=== PATIENT | female | born 1980 | race Caucasian/White ===

== ENCOUNTER 2023-10-21 18:09 | Observation (INO) | payer BC, SELFPAY ==
[2023-10-21] VITALS (24 sets, daily range): BP systolic 129–166; BP diastolic 85–96; PULSE 54–72; TEMP 36.5–36.8; O2SAT 93–100; BMI 43.0; BMI 45.0
--- NOTE | 2023-10-21 18:36 | ECG_ITS ---
The [facility] Test Date: 2023-10-21 Pat Name: JENNIFER VERAS Department: Room: - Gender: Female Flying Teacher: : 1980 Requested By: [id number] Order Number: [id number] Reading MD: RODRIGO FORMAN Measurements Intervals [place] Rate: 61 P: 58 KS: 176 QRS: 74 QRSD: 86 T: 62 QT: 440 QTc: 444 Interpretive Statements 1100 Sinus rhythm 9110 normal ECG No previous ECG available for comparison Electronically Signed On 10-22-2023 19:07:29 EDT by RODRIGO FORMAN
--- NOTE | 2023-10-21 18:40 | ED.GENADUL1 ---
HPI HPI - General Adult General Chief complaint: Dizziness Stated complaint: Chest Pain, Nausea/Vomiting Time Seen by Provider: 10/21/23 18:14 Source: patient Mode of arrival: Wheelchair Limitations: no limitations History of Present Illness HPI narrative: Patient is a 43-year-old female who presents to the emergency department for the evaluation of multiple complaints. She is currently in the area visiting her father. She states for the last several weeks she has had the sensation that the room is spinning. She states abruptly 2 hours ago, her symptoms got much worse. She has been vomiting continuously. She denies headache at this time, however she states she has had a headache associated with the dizziness. She denies visual changes, numbness or tingling. She states when her symptoms got much worse 2 hours ago, she felt tightness in her chest. She states she was COVID-positive about 4 weeks ago. She has not had any persistent fevers, congestion or cough over the last several weeks. She has a history of hysterectomy, hypertension, borderline diabetes and depression. She states she takes medication for thyroid dysfunction as well. She has not had any leg swelling or hemoptysis. Related Data Home Medications ?Medication ?Instructions ?Recorded ?Confirmed levothyroxine 112 mcg tablet 112 mcg PO DAILY 10/21/23 10/21/23 (Euthyrox) Previous Rx's ?Medication ?Instructions ?Recorded meclizine 25 mg chewable tablet 25 mg PO QID PRN dizziness #12 tabs 10/21/23 (Antivert) ondansetron 4 mg disintegrating 4 mg PO Q6H PRN nausea and 10/21/23 tablet vomiting #12 tabs promethazine 25 mg tablet 25 mg PO Q6H PRN nausea and 10/21/23 vomiting #12 tabs Allergies Allergy/AdvReac Type Severity Reaction Status Date / Time No Known Drug Allergies Allergy Verified 10/21/23 18:19 Opioid HPI Opioid Management Most Recent Opioid Data: No Data to Display Review of Systems ROS Constitutional Denies: fever or chills Eyes Denies: change in vision Ears, nose, mouth, and throat Denies: throat pain or nasal congestion Cardiovascular Reports: chest pain Respiratory Denies: shortness of breath or cough Gastrointestinal Reports: nausea and vomiting; Denies: abdominal pain or diarrhea Musculoskeletal Denies: back pain or neck pain Integumentary/Breast Denies: rash Neurological Reports: headache and dizziness; Denies: numbness in extremities or weakness in extremities Hematologic/Lymphatic Denies: easy bruising or easy bleeding Exam Narrative Exam Narrative: Gen.: Awake, alert, in no distress Head: Normocephalic, atraumatic ENT: Moist mucous membranes, bilateral TMs clear Respiratory: No respiratory distress, lungs clear bilaterally Cardio: Regular rate and rhythm Gastrointestinal: Abdomen is soft, nondistended and nontender to palpation Extremities: Moves extremities equally, no pedal edema Psych: Normal mood and affect Neuro: No focal neuro deficit Skin: Warm, dry, intact Constitutional Vital Signs, click to edit/add: Last Vital Signs Temp 97.7 F 10/21/23 18:20 Pulse 61 10/21/23 23:04 Resp 17 10/21/23 21:10 BP 144/89 H 10/21/23 20:11 Pulse Ox 100 10/21/23 19:00 O2 Del Method Room Air 10/21/23 18:44 Course Vital Signs Vital signs: Vital Signs Temperature 97.7 F 10/21/23 18:20 Pulse Rate 64 10/21/23 18:20 Respiratory Rate 20 10/21/23 18:20 Blood Pressure 166/96 H 10/21/23 18:20 Pulse Oximetry 95 10/21/23 18:20 Oxygen Delivery Method Room Air 10/21/23 18:20 Temperature 97.7 F 10/21/23 18:20 Pulse Rate 61 10/21/23 23:04 Respiratory Rate 17 10/21/23 21:10 Blood Pressure 144/89 H 10/21/23 20:11 Pulse Oximetry 100 10/21/23 19:00 Oxygen Delivery Method Room Air 10/21/23 18:44 Medical Decision Making [facility] Narrative Medical decision making narrative: Medicated with IV Valium, Zofran and Phenergan with fluids. Initial lactic acid was elevated. Patient had no further episodes of Zofran in the ER, her labs are otherwise unremarkable except for mild hypokalemia. She tolerated oral potassium and oral Antivert. Vital signs are within normal limits, she has no focal neurodeficits. D-dimer is within normal limits. EKG, CT of the brain and chest x-ray are unremarkable. We attempted to discharge the patient home with medications after her IV was established and she was given discharge instructions, she had another episode of emesis and stated that she was too dizzy to walk to her car. At this time we will admit for observation for dizziness. SHARED APC VISIT, PHYSICIAN ATTESTATION: [id number] I performed a substantive part of the MDM during the patient?s E/M visit. I personally evaluated and examined the patient. I personally made or approved the documented management plan and acknowledge its risk of complications. ? Medical Records Medical records reviewed: Yes I reviewed the patient's medical records Lab Data Lab results reviewed: Yes I reviewed the patient's lab results Labs: Lab Results 10/21/23 10/21/23 Range/Units 18:32 20:15 WBC 11.3 H (4.0-11.0) 10^3/uL RBC 5.40 (4.20-5.40) 10^6/uL Hgb 15.8 (12.0-16.0) g/dL Hct 45.7 (36.0-48.0) % MCV 84.6 (81.0-99.0) fL MCH 29.3 (26.7-34.0) pg MCHC 34.6 (29.9-35.2) g/dL RDW 11.6 (11.0-15.0) % Plt Count 378 (150-450) 10^3/uL MPV 10.5 (9.5-13.5) fL Neut % (Auto) 49.5 (43.0-75.0) % Lymph % (Auto) 35.2 (20.5-60.0) % [place] % (Auto) 9.9 (1.7-12.0) % Eos % (Auto) 4.1 (0.9-7.0) % Baso % (Auto) 0.9 (0.2-2.0) % Neut # (Auto) 5.6 (1.4-6.5) 10^3/uL Lymph # (Auto) 4.0 H (1.2-3.8) 10^3/uL [place] # (Auto) 1.1 H (0.3-0.8) 10^3/uL Eos # (Auto) 0.5 (0.0-0.7) 10^3/uL Baso # (Auto) 0.1 (0.0-0.1) 10^3/uL Abs Immat Gran (auto) 0.04 H (0.00-0.03) 10^3/uL Imm/Tot Granulo (auto) 0.4 (0.0-0.5) % PT 10.5 (9.0-11.6) sec INR 0.99 D-Dimer 0.21 (<=0.59) mg/L FEU Sodium 140 (136-145) mmol/L Potassium 3.2 L (3.5-5.1) mmol/L Chloride 103 (98-107) mmol/L Carbon Dioxide 23.8 (21.0-32.0) mmol/L Anion Gap 16.4 BUN 15.0 (7.0-18.0) mg/dL Creatinine 0.93 (0.55-1.02) mg/dL Est GFR ( Amer) >60 (>=60) Est GFR (Non-Af Amer) >60 (>=60) BUN/Creatinine Ratio 16.1 Glucose 125 H (74-106) mg/dL Lactate 4.1 H* 2.5 H* (0.4-2.0) mmol/L Calcium 9.2 (8.5-10.1) mg/dL Total Bilirubin 0.5 (0.2-1.0) mg/dL AST 14 L (15-37) U/L ALT 27 (14-59) U/L Alkaline Phosphatase 107 (46-116) U/L Troponin I High Sens <4.0 L (4.0-51.3) pg/mL Total Protein 7.2 (6.4-8.2) g/dL Albumin 3.7 (3.4-5.0) g/dL Globulin 3.5 g/dL Albumin/Globulin Ratio 1.1 TSH 0.302 L (0.358-3.740) uIU/mL Imaging Data CT scan - head: Attestation: I have reviewed the pertinent imaging results. Radiologist's impression: ITS Impressions Chest X-Ray 10/21/23 19:08 IMPRESSION: No acute infiltrate or evidence of cardiac decompensation. Electronically authenticated by: AIDAN MOSS Date: 10/21/2023 19:[address] 10/21/23 19:08 IMPRESSION: No acute intracranial process. Electronically authenticated by: FERNANDO UNLQuinn Date: 10/21/2023 19:40 ECG Data Attestation: I personally reviewed and interpreted this ECG as follows: (Normal sinus rhythm at a rate of 61, no acute ST elevation or ectopy. EKG reviewed by attending physician) Discharge Plan Discharge Chief Complaint: Dizziness Clinical Impression: Dizziness, Nausea and vomiting Patient Disposition: Admitted as Observation Time of Disposition Decision: 21:16 Condition: Good
[2023-10-21 18:46] LABS: Basophils Absolute Auto 0.1 10^3/uL (0.0-0.1); Basophils Percent Auto 0.9 % (0.2-2.0); Eosinophils Absolute Auto 0.5 10^3/uL (0.0-0.7); Eosinophils Percent Auto 4.1 % (0.9-7.0); Hematocrit 45.7 % (36.0-48.0); Hemoglobin 15.8 g/dL (12.0-16.0); Immature Granulocytes Abs Auto 0.04 10^3/uL (0.00-0.03); Immature Granulocytes Pct Auto 0.4 % (0.0-0.5); Lymphocytes Percent Auto 35.2 % (20.5-60.0); Mean Corpuscular HGB Conc 34.6 g/dL (29.9-35.2); Mean Corpuscular Hemoglobin 29.3 pg (26.7-34.0); Mean Corpuscular Volume 84.6 fL (81.0-99.0); Mean Platelet Volume 10.5 fL (9.5-13.5); Monocytes Absolute Auto 1.1 10^3/uL (0.3-0.8); Monocytes Percent Auto 9.9 % (1.7-12.0); Neutrophils Absolute Auto 5.6 10^3/uL (1.4-6.5); Neutrophils Percent Auto 49.5 % (43.0-75.0); Platelet Count 378 10^3/uL (150-450); Red Cell Distribution Width 11.6 % (11.0-15.0); White Blood Count 11.3 10^3/uL (4.0-11.0)
[2023-10-21] MEDS: 0.9 % SODIUM CHLORIDE 1,000 ML 999 ML IV (18:52)
[2023-10-21] MEDS: ONDANSETRON PF 4 MG/2 ML VIAL IV (18:52)
[2023-10-21] MEDS: PROMETHAZINE HCL 12.5 MG in 0.9 % SODIUM CHLORIDE 50 ML 202 MG IV (18:53)
[2023-10-21] MEDS: DIAZEPAM 10 MG/2 ML SYRINGE 5 MG IV (18:53)
[2023-10-21 19:01] LABS: Alanine Aminotransferase 27 U/L (14-59); Albumin Globulin Ratio 1.1; Albumin Level 3.7 g/dL (3.4-5.0); Alkaline Phosphatase 107 U/L (46-116); Anion Gap 16.4; Aspartate Amino Transferase 14 U/L (15-37); BUN Creatinine Ratio 16.1; Bilirubin Total 0.5 mg/dL (0.2-1.0); Calcium 9.2 mg/dL (8.5-10.1); Carbon Dioxide 23.8 mmol/L (21.0-32.0); Chloride 103 mmol/L (98-107); D Dimer 0.21 mg/L FEU (<=0.59); Estimated GFR (African America >60 (>=60); Estimated GFR (Non-African Ame >60 (>=60); Globulin 3.5 g/dL; Glucose 125 mg/dL (74-106); INR 0.99; Potassium 3.2 mmol/L (3.5-5.1); Prothrombin Time 10.5 sec (9.0-11.6); Sodium 140 mmol/L (136-145); Total Protein 7.2 g/dL (6.4-8.2)
--- NOTE | 2023-10-21 19:08 | XR_ITS ---
The [address] [address] Patient Name: JENNIFER VERAS MRN: [id number] date: 1980 Sex: F Assigned Patient Location: ED.MAIN Current Patient Location: ER Accession/Order Number: [id number] Exam Date: 10/21/2023 19:13 Report Date: 10/21/2023 19:51 At the request of: CYNDI GARCIA Procedure: XR chest 1V EXAM: XR chest 1V at 1905 hours HISTORY: Chest pain COMPARISON: None. TECHNIQUE: AP upright portable chest x-ray FINDINGS: The heart is not enlarged and the vasculature is not distended. No acute infiltrate, effusion or pneumothorax is identified. The osseous structures are grossly intact. XR/XR chest 1V IMPRESSION: No acute infiltrate or evidence of cardiac decompensation. Electronically authenticated by: AIDAN MOSS Date: 10/21/2023 19:51
--- NOTE | 2023-10-21 19:08 | CT_ITS ---
The [address] [address] Patient Name: JENNIFER VERAS MRN: [id number] date: 1980 Sex: F Assigned Patient Location: ER Current Patient Location: ER Accession/Order Number: [id number] Exam Date: 10/21/2023 19:13 Report Date: 10/21/2023 19:40 At the request of: CYNDI GARCIA Procedure: CT head/brain wo con EXAM: CT head/brain wo con HISTORY: Vertigo COMPARISON: None. TECHNIQUE: Axial CT scans through the head were obtained without IV contrast administration. Dose reduction techniques were achieved by using: automated exposure control and/or adjustment of mA and /or kV according to patient size and/or use of iterative reconstruction technique. FINDINGS: There is no acute intracranial hemorrhage or abnormal extra-axial fluid collection. No mass effect or midline shift is seen. There is no evidence of large acute territorial infarction. There is no hydrocephalus. To the limit of CT, the posterior fossa appears unremarkable. The calvaria and extra cranial soft tissues are unremarkable. The visualized orbits show no abnormality. The visualized paranasal sinuses show no air-fluid level. Mastoid air cells are clear. CT/CT head/brain wo con IMPRESSION: No acute intracranial process. Electronically authenticated by: FERNANDO KHALIL Date: 10/21/2023 19:40
[2023-10-21 19:09] LABS: Thyroid Stimulating Hormone 0.302 uIU/mL (0.358-3.740); Troponin I High Sensitivity <4.0 pg/mL (4.0-51.3)
[2023-10-21 19:10] LABS: Lactate/Lactic Acid 4.1 mmol/L (0.4-2.0)
[2023-10-21] MEDS: POTASSIUM CHLORIDE 10 MEQ ER TABLET 40 MEQ PO (20:12)
[2023-10-21] MEDS: MECLIZINE HCL 12.5 MG TABLET 25 MG PO (20:25)
[2023-10-21 21:11] LABS: Lactate/Lactic Acid 2.5 mmol/L (0.4-2.0)
--- NOTE | 2023-10-21 21:40 | PC.NURSE ---
Pt was given discharge instructions and her IV removed Pt verbalized understanding Pt then rang out lead consultant light after the nurse left the room stating that she threw up again and is too dizzy to walk JASMIN Whitt directed the nurse to start a new IV and she will admit the pt
[2023-10-21] MEDS: PROMETHAZINE HCL 25 MG/ML VIAL 12.5 MG IM (22:45)
--- NOTE | 2023-10-21 23:15 | PC.NURSE ---
While performing suicide screening test patient responded yes to wish she were and plans to harm herself. She further stated this has improved since she has been taking ketamine injections and has no plan to currently harm herself.
[2023-10-22] VITALS (10 sets, daily range): BP systolic 114–129; BP diastolic 70–82; PULSE 53–77; TEMP 36.6–36.8; O2SAT 96–97
[2023-10-22] MEDS: 0.9 % SODIUM CHLORIDE 1,000 ML 125 ML IV ×2 (01:00→09:14)
[2023-10-22 05:37] LABS: Hematocrit 40.5 % (36.0-48.0); Hemoglobin 13.7 g/dL (12.0-16.0); Mean Corpuscular HGB Conc 33.8 g/dL (29.9-35.2); Mean Corpuscular Volume 85.6 fL (81.0-99.0); Mean Platelet Volume 10.8 fL (9.5-13.5); Platelet Count 309 10^3/uL (150-450); Red Blood Count 4.73 10^6/uL (4.20-5.40); Red Cell Distribution Width 11.7 % (11.0-15.0); White Blood Count 9.9 10^3/uL (4.0-11.0)
[2023-10-22 05:46] LABS: Anion Gap 13.8; BUN Creatinine Ratio 16.2; Calcium 8.5 mg/dL (8.5-10.1); Carbon Dioxide 26.5 mmol/L (21.0-32.0); Chloride 106 mmol/L (98-107); Estimated GFR (African America >60 (>=60); Estimated GFR (Non-African Ame >60 (>=60); Glucose 107 mg/dL (74-106); Magnesium 1.8 mg/dL (1.8-2.4); Potassium 4.3 mmol/L (3.5-5.1); Sodium 142 mmol/L (136-145)
--- NOTE | 2023-10-22 08:14 | CM.NOTE ---
Rounds made with Dr. Knapp. Dr. Knapp to order Decadron IV today x1 and have P.T. work with Ms. Martin to alleviate the dizziness. Potential discharge later if treatment plan improves dizziness.
[2023-10-22] MEDS: ONDANSETRON PF 4 MG/2 ML VIAL IV (08:19)
[2023-10-22] MEDS: MECLIZINE HCL 12.5 MG TABLET 25 MG PO ×2 (08:19→14:35)
--- NOTE | 2023-10-22 08:29 | P.HP_ITS ---
HPI H&P: HPI History of Present Illness Chief complaint: Chest Pain, Nausea/Vomiting, Dizziness Narrative: Patient presented to the emergency room with vertigo, definitely spinning sensation, not near syncope, she has had this for some time off and on but this time is persisting and was worse than previous episodes. Frequent nausea vomiting over the hour prior to presentation. Patient symptoms improved in ER but then had further episode and dizziness and unable to ambulate safely. Patient was observed overnight I saw patient up in the medical surgical floor, she still had the dizziness, but was resting comfortably in bed. No nausea or vomiting noted. 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 thyroiditis (ICD-10) Hypertension ?I10 - Essential (primary) hypertension (ICD-10) Carpal tunnel syndrome ?G56.00 - Carpal tunnel syndrome, unspecified upper limb (ICD-10) Rheumatoid arthritis ?M06.9 - Rheumatoid arthritis, unspecified (ICD-10) Osteoarthritis ?M19.90 - Unspecified osteoarthritis, unspecified site (ICD-10) Hypothyroid ?E03.9 - Hypothyroidism, unspecified (ICD-10) Prediabetes ?R73.03 - Prediabetes (ICD-10) Irritable bowel syndrome (IBS) ?K58.9 - Irritable bowel syndrome without diarrhea (ICD-10) PTSD (post-traumatic stress disorder) ?F43.10 - Post-traumatic stress disorder, unspecified (ICD-10) Anxiety ?F41.9 - Anxiety disorder, unspecified (ICD-10) Depression ?F32.A - Depression, unspecified (ICD-10) Surgical History (Updated 10/21/23 @ 23:22 by Rosibel Day RN) H/O dilation and curettage ?Z98.890 - Other specified postprocedural states (ICD-10) H/O foot surgery ?Z98.890 - Other specified postprocedural states (ICD-10) Hx of tonsillectomy ?Z90.89 - Acquired absence of other organs (ICD-10) History of cholecystectomy ?Z90.49 - Acquired absence of other specified parts of digestive tract (ICD- 10) H/O: hysterectomy ?Z90.710 - Acquired absence of both cervix and uterus (ICD-10) Family History (Updated 10/21/23 @ 23:23 by Rosibel Day RN) Mother Family history of CHF (congestive heart failure) Family history of cancer Family history of diabetes mellitus Family history of hypertension Family history of myocardial infarction Family history of stroke Father Family history of CHF (congestive heart failure) Family history of COPD (chronic obstructive pulmonary disease) Family history of diabetes mellitus Family history of hypertension Family history of myocardial infarction Social History (Updated 10/21/23 @ 23:26 by Rosibel Day RN) Within the past year, how often did you have a drink containing alcohol: monthly or less Within the past year, how many standard drinks containing alcohol did you have on a typical day: 3 or 4 Within the past year, how often did you have six or more drinks on one occasion: never Total score: 2 Score interpretation: A score less than 3 is consistent with normal alcohol consumption. Smoking status: Never smoker Non-prescribed substance use: cannabis (any form) Highest level of school completed/degree received: Bachelor's degree Are you now , , , , never or living with a partner: living with partner In a typical week, how many times do you talk on the telephone with family, friends, or neighbors: twice per week How often do you get together with friends or relatives: twice per week How often do you attend anabaptism or bahai services: never Little interest or pleasure in doing things: nearly every day Feeling down, depressed, or hopeless: nearly every day Feel stressed/tense/nervous/anxious/difficulty sleeping: rather much Life stressors: recent of family or friend Life stressor details: Mother passed last week Do you think of yourself as: straight/heterosexual Gender Identity: female Meds Home Medications and Allergies Home Medications ?Medication ?Instructions ?Recorded ?Confirmed ?Type estradiol 0.075 mg/24 hr weekly 1 patch transdermal QWEEK 10/21/23 10/21/23 History transdermal patch (Climara) hydroxychloroquine 200 mg tablet 200 mg PO BID 10/21/23 10/21/23 History levothyroxine 112 mcg tablet 112 mcg PO DAILY 10/21/23 10/21/23 History (Euthyrox) losartan 50 mg tablet 50 mg PO DAILY 10/21/23 10/21/23 History meclizine 25 mg chewable tablet 25 mg PO QID PRN dizziness #12 tabs 10/21/23 Rx (Antivert) meloxicam 7.5 mg tablet 7.5 mg PO DAILY 10/21/23 10/21/23 History metformin 500 mg tablet 500 mg PO DAILY 10/21/23 10/21/23 History ondansetron 4 mg disintegrating 4 mg PO Q6H PRN nausea and 10/21/23 Rx tablet vomiting #12 tabs promethazine 25 mg tablet 25 mg PO Q6H PRN nausea and 10/21/23 Rx vomiting #12 tabs cefdinir 300 mg capsule 600 mg (2 x 300 mg) PO DAILY #14 10/22/23 Rx caps meclizine 25 mg tablet 25 mg PO QID #20 tabs 10/22/23 Rx ondansetron 4 mg disintegrating 4 mg PO Q6H PRN nausea and 10/22/23 Rx tablet vomiting #14 tabs Allergies Allergy/AdvReac Type Severity Reaction Status Date / Time No Known Drug Allergies Allergy Verified 10/21/23 18:19 Exam Constitutional Vital Signs, click to edit/add: Last Vital Signs Temp 97.8 F 10/22/23 08:00 Pulse 53 L 10/22/23 08:00 Resp 18 10/22/23 08:00 BP 129/82 10/22/23 08:00 Pulse Ox 97 10/22/23 08:00 O2 Del Method Room Air 10/22/23 08:00 Documenting provider has reviewed patient's vital signs: yes Common normals: no apparent distress Respiratory Common normals: normal respiratory effort, no retractions and clear to auscultation bilaterally Cardio Common normals: regular rate, regular rhythm and no murmurs GI Common normals: Normal to inspection, nondistended, normoactive bowel sounds present and soft to palpation Extremity Common normals: normal to inspection and full ROM Neuro Common normals: oriented x3, CN's II-XII intact bilaterally and moves all extremities Sensorium/orientation: other (Nystagmus on bilateral conjugate gaze) Results Labs Labs: Short CBC 10/21/23 10/22/23 Range/Units 18:32 05:20 WBC 11.3 H 9.9 (4.0-11.0) 10^3/uL Hgb 15.8 13.7 (12.0-16.0) g/dL Hct 45.7 40.5 (36.0-48.0) % Plt Count 378 309 (150-450) 10^3/uL BMP 10/21/23 10/22/23 18:32 05:20 Sodium 140 142 Potassium 3.2 L 4.3 Chloride 103 106 Carbon Dioxide 23.8 26.5 BUN 15.0 12.0 Creatinine 0.93 0.74 Glucose 125 H 107 H Calcium 9.2 8.5 Liver Function 10/21/23 Range/Units 18:32 Total Bilirubin 0.5 (0.2-1.0) mg/dL AST 14 L (15-37) U/L ALT 27 (14-59) U/L Alkaline Phosphatase 107 (46-116) U/L Albumin 3.7 (3.4-5.0) g/dL Assessment and Plan Assessment and Plan (1) Nausea and vomiting: (2) Dizziness: Plan Admission findings: Patient presented to the emergency room with significant vertigo. Treated in ER without success. Patient admitted for observation and further therapy Vertigo: 1 dose of steroids, make the meclizine [id number] and add oral antibiotics. Physical therapy to work with patient. If improved later today possible discharge to home in improving condition. Medications see list. Follow-up with her PCP within the next week. Hypokalemia-improved to normal Leukocytosis-likely secondary to demargination but with the positive lactate would be consistent with acute bacterial infection. Antibiotics started as outlined above Admission status: Patient admitted with failed treatment for vertigo. Will give antibiotics, steroids, meclizine this morning, physical therapy to work with patient this morning, if improved later today likely discharge to home, medically necessary treatment will span 1 midnight, observation status.
[2023-10-22] MEDS: LEVOFLOXACIN 750 MG TABLET PO (09:13)
[2023-10-22] MEDS: HYDROXYCHLOROQUINE SULFATE 200 MG TABLET PO (09:13)
[2023-10-22] MEDS: LOSARTAN POTASSIUM 50 MG TABLET PO (09:13)
[2023-10-22] MEDS: METFORMIN HCL 500 MG TABLET PO (09:13)
[2023-10-22] MEDS: MELOXICAM 7.5 MG TABLET PO (09:13)
[2023-10-22] MEDS: DEXAMETHASONE SOD PHOS 4 MG/ML VIAL 10 MG IV (09:15)
--- NOTE | 2023-10-23 11:19 | CM.DCFOLLOWU ---
9/5 no answer. 1st attempt
--- NOTE | 2023-10-24 13:58 | CM.DCFOLLOWU ---
2nd attempt 10/24/23, no answer
== END 2023-10-22 16:21 | disposition home or self-care (01) ==
LOC: ER 21:39 → MS 22:51
PROVIDERS: Physician Assistant; Registered Nurse; Admitting Provider Family Medicine; Emergency Provider Emergency Medicine; Visit Provider Family Medicine
DX: R42 Dizziness and giddiness (principal); R11.2 Nausea with vomiting, unspecified; E87.6 Hypokalemia; A49.9 Bacterial infection, unspecified; Z90.710 Acquired absence of both cervix and uterus; I10 Essential (primary) hypertension; F32.A Depression, unspecified; R73.03 Prediabetes; E07.9 Disorder of thyroid, unspecified; Z79.890 Hormone replacement therapy
CPT/HCPCS: 36415; 70450; 71045; 80048; 80053; 80307; 83605; 83735; 84443; 84484; 85025; 85027; 85378; 85610; 93005; 96361; 96365; 96372; 96375; 96376; 97161; 99285; G0378; J1100; J2250; J2405; J3360